=== PATIENT | male | born 1945 | race Caucasian/White ===

== ENCOUNTER 2018-03-02 10:16 | Inpatient (IN) | payer MEDICARE ==
[~2018-03-02] VITALS: Ht 188 cm; Wt 103.9 kg
[2018-03-02] MEDS ORDERED: NITROGLYCERIN SINGLE TAB 0.4 MG SL ONE (10:56)
[2018-03-02 11:00] LABS: BASOPHILS # (AUTO) 0.05 x10^3/uL (0-0.1); BASOPHILS % (AUTO) 1 % (0-1); EOSINOPHILS # (AUTO) 0.14 x10^3/uL (0-0.4); EOSINOPHILS % (AUTO) 2 % (1-7); LYMPHOCYTES # (AUTO) 1.78 x10^3/uL (1-3.4); LYMPHOCYTES % (AUTO) 24 % (22-44); MD NO; MEAN CORPUSCULAR HEMOGLOBIN 32.2 pg (27.5-34.5); MEAN CORPUSCULAR HGB CONC 34.8 g/dL (33.2-36.2); MEAN CORPUSCULAR VOLUME 92.4 fL (81-97); MEAN PLATELET VOLUME 8.8 fL (7.4-10.4); MONOCYTES % (AUTO) 8 % (2-9); NEUTROPHILS # (AUTO) 4.84 x10^3/uL (1.8-6.8); NEUTROPHILS % (AUTO) 65 % (42-75); PLATELET COUNT 213 x10^3/uL (130-400); RED BLOOD COUNT 5.08 x10^6/uL (4.38-5.82); RED CELL DISTRIBUTION WIDTH 12.9 % (9.4-14.8)
[2018-03-02] MEDS ORDERED: NITROGLYCERIN SINGLE TAB 0.4 MG SL PRN (11:00)
[2018-03-02] MEDS ORDERED: ASPIRIN 81 MG TABLET CHEW PO ONE (11:00)
[2018-03-02] MEDS ORDERED: ASPIRIN 81 MG TABLET CHEW ONE (11:08)
[2018-03-02 11:12] LABS: ALANINE AMINOTRANSFERASE 30 U/L (12-78); ALBUMIN 3.9 g/dL (3.4-5.0); ANION GAP 8 mmol/L (5-15); CALCIUM 8.8 mg/dL (8.5-10.1); CHLORIDE 110 mmol/L (98-107); CREATININE 0.83 mg/dL (0.7-1.3)
[2018-03-02 11:15] LABS: INTERNATIONAL NORMALIZED RATIO 1.01 (0.93-1.1); PROTHROMBIN TIME 10.5 Seconds (9.6-11.5)
[2018-03-02 11:16] LABS: ALKALINE PHOSPHATASE 90 U/L (45-117); TOTAL PROTEIN 7.4 g/dL (6.4-8.2); TROPONIN I < 0.015 ng/mL (0.000-0.045)
[2018-03-02] MEDS ORDERED: ONDANSETRON 2MG/ML, 2ML IVPush PRN (12:30)
[2018-03-02] MEDS ORDERED: morphine SULFATE 10 MG/ML, 1ML IVPush PRN (12:30)
[2018-03-02] MEDS ORDERED: ACETAMINOPHEN 325 MG TABLET PO PRN (12:30)
[2018-03-02] MEDS ORDERED: POLYETHYLENE GLYCOL 17 GM PACKET PO PRN (12:30)
[2018-03-02] MEDS ORDERED: NITROGLYCERIN 0.4 MG BOTTLE (25 TABS) SL PRN (12:30)
[2018-03-02] MEDS ORDERED: ZOLPIDEM 5MG TABLET PO PRN (12:30)
[2018-03-02 13:50] VITALS: BP 180/72
[2018-03-02] MEDS: SODIUM CHLORIDE 0.9% 1,000 ML IV SCH (13:54)
[2018-03-02] MEDS: LABETALOL 5MG/ML, 20ML IVPush PRN (13:55)
[2018-03-02] MEDS: ENOXAPARIN 40 MG/0.4 ML SQ SCH (14:06)
[2018-03-02 14:09] VITALS: BP 173/83
[2018-03-02 14:10] VITALS: BP 172/80
[2018-03-02 15:10] VITALS: BP 164/76
[2018-03-02 16:00] VITALS: BP 153/72
[2018-03-02 18:29] LABS: TROPONIN I < 0.015 ng/mL (0.000-0.045)
[2018-03-02 19:55] VITALS: BP 155/61
[2018-03-03] MEDS: SODIUM CHLORIDE 0.9% 1,000 ML IV SCH ×2 (01:22→21:19)
[2018-03-03 01:36] VITALS: BP 160/74
[2018-03-03 05:24] LABS: CHOL/HDL RATIO 5.2; LDL/HDL RATIO 3.5 (0.5-3.0)
[2018-03-03 06:53] VITALS: BP 141/84
[2018-03-03] MEDS ORDERED: REGADENOSON 0.4 MG/5 ML SYRINGE ONE (08:49)
[2018-03-03 12:06] VITALS: BP 186/72
[2018-03-03] MEDS: LABETALOL 5MG/ML, 20ML IVPush PRN (12:44)
[2018-03-03] MEDS: ENOXAPARIN 40 MG/0.4 ML SQ SCH (12:44)
[2018-03-03 14:42] VITALS: BP 156/80
[2018-03-03 21:14] VITALS: BP 167/89
[2018-03-03] MEDS ORDERED: OMNIPAQUE 350 MG/ML, 100ML BOTTLE ONE (22:13)
[2018-03-04 05:22] VITALS: BP 171/81
[2018-03-04] MEDS ORDERED: ENALAPRILAT 1.25 MG/ML, 2ML IV PRN (05:30)
[2018-03-04 06:45] VITALS: BP_SYST 163; BP_SYST 172; BP_DIAS 84; BP_DIAS 93
[2018-03-04] MEDS: LISINOPRIL 20 MG TABLET PO SCH ×2 (08:14→20:27)
[2018-03-04 11:08] VITALS: BP 155/76
[2018-03-04] MEDS: AMLODIPINE 5 MG TABLET PO SCH (11:08)
[2018-03-04] MEDS ORDERED: VERAPAMIL 2.5 MG/ML, 2ML ONE (12:32)
[2018-03-04] MEDS ORDERED: NITROGLYCERIN 5 MG/ML, 10ML ONE (12:32)
[2018-03-04] MEDS ORDERED: LIDOCAINE-MPF 2%, 2ML ONE (12:32)
[2018-03-04] MEDS ORDERED: HEPARIN 1,000 UNITS/ML, 10ML ONE (12:32)
[2018-03-04] MEDS ORDERED: FENTANYL PF 100 MCG/2ML ONE (12:32)
[2018-03-04] MEDS ORDERED: MIDAZOLAM 1 MG/ML, 2ML ONE (12:32)
[2018-03-04] MEDS ORDERED: BIVALIRUDIN 250 MG ONE (12:32)
[2018-03-04] MEDS ORDERED: PRASUGREL 10 MG TABLET ONE (13:27)
[2018-03-04 14:00] VITALS: BP 179/82
[2018-03-04] MEDS ORDERED: BIVALIRUDIN 250 MG in DEXTROSE 5% 50 ML IV SCH (14:01)
[2018-03-04] MEDS: SODIUM CHLORIDE 0.9% 1,000 ML IV SCH ×2 (14:01→19:13)
[2018-03-04 20:33] VITALS: BP 164/72
[2018-03-04] MEDS ORDERED: ATORVASTATIN 40 MG TABLET PO SCH (21:00)
[2018-03-05] MEDS: SODIUM CHLORIDE 0.9% 1,000 ML IV SCH ×2 (00:42→11:58)
[2018-03-05 03:10] VITALS: BP 150/78
[2018-03-05 05:23] LABS: ALBUMIN 3.5 g/dL (3.4-5.0); ANION GAP 8 mmol/L (5-15); CALCIUM 9.2 mg/dL (8.5-10.1); CHLORIDE 109 mmol/L (98-107); CREATININE 0.89 mg/dL (0.7-1.3)
[2018-03-05] MEDS ORDERED: ASPIRIN 81 MG TABLET EC PO SCH (06:00)
[2018-03-05 07:50] VITALS: BP 175/80
[2018-03-05] MEDS ORDERED: PRASUGREL 10 MG TABLET PO SCH (09:00)
[2018-03-05] MEDS: AMLODIPINE 5 MG TABLET PO SCH (09:15)
[2018-03-05] MEDS: LISINOPRIL 20 MG TABLET PO SCH (09:15)
[2018-03-05] MEDS ORDERED: LISI-170 PO (12:03)
[2018-03-05] MEDS ORDERED: NITR0.4T SL (12:03)
[2018-03-05] MEDS ORDERED: PRAS10TA4 PO (12:03)
[2018-03-05] MEDS ORDERED: ASPI-621 PO (12:03)
[2018-03-05] MEDS ORDERED: ATOR40TA78 PO (12:03)
[2018-03-05] MEDS ORDERED: AMLO5TAB2 PO (12:03)
[2018-03-05] MEDS ORDERED: AMLODIPINE 5 MG TABLET PO SCH (21:00)
== END 2018-03-05 12:50 | disposition home or self-care (01) | DRG 246 ==
LOC: ED 11:56 → SUATTDRO 12:00 → EDIP 12:28 → OBSVTOIN 12:28 → 5SO 13:09 → DCLOUNGE 03-05 12:34
PROVIDERS: ADMIT Hospitalist; ATTEND Internal Medicine
PROC: 027035Z Dilation of Coronary Artery, One Artery with Two Drug-eluting Intraluminal Devices, Percutaneous Approach (ICD-10-PCS; principal; 2018-03-04)
PROC: 4A023N7 Measurement of Cardiac Sampling and Pressure, Left Heart, Percutaneous Approach (ICD-10-PCS; 2018-03-04)
PROC: B2111ZZ Fluoroscopy of Multiple Coronary Arteries using Low Osmolar Contrast (ICD-10-PCS; 2018-03-04)
PROC: B2151ZZ Fluoroscopy of Left Heart using Low Osmolar Contrast (ICD-10-PCS; 2018-03-04)
DX: I21.4 Non-ST elevation (NSTEMI) myocardial infarction (principal); I50.33 Acute on chronic diastolic (congestive) heart failure; I25.110 Atherosclerotic heart disease of native coronary artery with unstable angina pectoris; I45.2 Bifascicular block; N28.1 Cyst of kidney, acquired; F12.10 Cannabis abuse, uncomplicated; E78.5 Hyperlipidemia, unspecified; R00.1 Bradycardia, unspecified; I10 Essential (primary) hypertension; I35.8 Other nonrheumatic aortic valve disorders; I45.10 Unspecified right bundle-branch block; Z82.49 Family history of ischemic heart disease and other diseases of the circulatory system; Z87.891 Personal history of nicotine dependence
CPT/HCPCS: 36415; 71045; 74177; 78452; 80048; 80053; 80061; 82040; 83880; 84484; 85014; 85018; 85025; 85610; 85730; 92978; 93005; 93017; 93306; 93458; 96372; 96374; 99156; 99157; C1753; C1769; C1894; C9600; J0583; J1644; J1650; J2250; J2785; J3010; J3490; Q9967; A9502; C1725; C1874; C1887; C9898; J7030

== ENCOUNTER → 2018-04-17 | Outpatient (CLI) | payer MEDICARE ==
[~2018-04-17] MED LIST: AMLO5TAB7 PO; ASPI-621 PO; ATOR40TA78 PO; LISI-170 PO; NITR0.4T SL; PRAS10TA4 PO
[2018-04-17 12:00] LABS: BILIRUBIN, DIRECT 0.2 mg/dL (0.1-0.2); BILIRUBIN,INDIRECT 0.8 mg/dL (0.0-2.0); CHOL/HDL RATIO 2.5; LDL/HDL RATIO 1.2 (0.5-3.0); TOTAL PROTEIN 7.3 g/dL (6.4-8.2)
== END | disposition home or self-care (01) ==
LOC: LAB 11:19
PROVIDERS: ATTEND Internal Medicine Cardiovascular Disease
DX: I10 Essential (primary) hypertension (principal); Z87.891 Personal history of nicotine dependence
CPT/HCPCS: 36415; 80061; 80076